=== PATIENT | female | born 2000 | race Caucasian/White ===

== ENCOUNTER 2019-05-08 21:31 | Emergency (ER) | payer OTHER ==
[2019-05-08 21:59] VITALS: BP 101/68
[2019-05-08] MEDS ORDERED: LIDOCAINE 1% INJ-PF (10 MG/ML) 30 ML SDV INJ ONE (22:56)
--- NOTE | 2019-05-08 22:57 | ER Document Report ---
HPI - HPI Time Seen by Provider: 05/08/19 22:44 Pain Level: 4 Context: Patient is a 18-year-old female who presents emergency department with a chief complaint of possible insect bite. Patient reports she noticed an area of redness to the base of the right thumb. Patient reports she was seen at the urgent care 2 days ago and placed on Keflex. Patient reports she has been taking this for 2 days but has not had any improvement and reports increased swelling and redness. Patient denies drainage. Patient reports there is a central area that looks like a head where she got bit by something potentially. - REPRODUCTIVE Reproductive: DENIES: : Past Medical History - General Information source: Patient - Social History Smoking Status: Never Smoker Frequency of alcohol use: None Drug Abuse: None Lives with: Family Family History: None Patient has suicidal ideation: No Patient has homicidal ideation: No - Past Medical History Cardiac Medical History: Reports: None Pulmonary Medical History: Reports: None EENT Medical History: Reports: None Neurological Medical History: Reports: None Endocrine Medical History: Reports: None Renal/ Medical History: Reports: None Malignancy Medical History: Reports: None GI Medical History: Reports: None Musculoskeletal Medical History: Reports None Skin Medical History: Reports None Psychiatric Medical History: Reports: None Traumatic Medical History: Reports: None Infectious Medical History: Reports: None Surgical Hx: Negative Vertical Provider Document - CONSTITUTIONAL Agree With Documented VS: Yes Exam Limitations: No Limitations General Appearance: No Apparent Distress - INFECTION CONTROL TRAVEL OUTSIDE OF THE [place] IN LAST 30 DAYS: No - HEENT HEENT: Atraumatic, Normal ENT Exam, Normocephalic, PERRLA - NECK Neck: Normal Inspection - RESPIRATORY Respiratory: Breath Sounds Normal, No Respiratory Distress - CARDIOVASCULAR Cardiovascular: Regular Rate, Regular Rhythm - GI/ABDOMEN Gastrointestinal: Abdomen Soft, Abdomen Non-Tender, Normal Bowel Sounds - NEURO Level of Consciousness: Awake, Alert, Appropriate - DERM Integumentary: Warm Notes: Patient has a circular area of erythema at the base of the right thumb. There is a centralized head but does not appear to be draining. There is significantly tender to touch and mildly fluctuant. Course - Re-evaluation Re-evalutation: 05/08/19 23:06 Patient appears to be developing a small abscess to the base of the right thumb. I will perform an incision and drainage to help the wound drain over the next few days. Patient will continue to use warm compresses, ibuprofen as needed for pain, keeping the right hand elevated and continue to take the Keflex as prescribed. - Vital Signs Vital signs: Temp Pulse Resp BP Pulse Ox 98.1 F 90 101/68 99 05/08/19 21:35 05/08/19 21:35 05/08/19 21:35 05/08/19 21:35 Procedures - Incision and Drainage Right Lower Thumb Time completed: 11:20 Type: Simple Anesthetic type: 1% Lidocaine mL's of anesthetic: 1 Blade size: 11 I&D procedure: Betadine prep applied Incision Method: Incision made by scalpel Notes: 05/08/19 23:33 Small amount of purulent drainage and blood drained from the very small abscess to the base of the right thumb. Hands back picture: 1 - Area of incision and drainage. Discharge - Discharge Clinical Impression: Abscess, Pain of right thumb Condition: Stable Disposition: HOME, SELF-CARE Additional Instructions: *Today you were seen in the emergency department for possible insect bite to the base of the right thumb. It does appear that you have potentially have gotten bit or stung by an insect or spider. Since he did not see anything bite you there is no way we can know for sure. We do treat this all the same. It does appear that the bite did develop a small abscess. I did attempt to cut this open so we will continue to drain over the next few days. Please continue to use warm compresses, ibuprofen as needed for pain and monitor for signs of infection. Please return the emergency department if you develop any high fever or chills, note of some redness that starts to spread up the hand and arm, in creased swelling or increased tenderness. ABSCESS: You have an abscess (boil). This a pus-forming infection, usually due to staph. Some boils may be left to drain on their own, but most require lancing. From the time the tender lump first appears, it may be three or four days before the abscess is ready to ramana. Local heat and rest help at this stage of treatment. An antibiotic may prevent spread of the infection. Once the abscess is opened, packing may be placed into it. This is done so pus is not sealed inside by premature closure of the cavity. The packing will be removed at your follow-up visit or you may be advised to remove it yourself at home. Sometimes this packing must be replaced a few times during healing. The wound will heal with surprisingly little scar. Depending on the size and location of an abscess, healing can take one to four weeks. You may shower and wash the area around the incision site two or three times a day. Antibiotics may be prescribed, but are usually not necessary after an abscess has been drained. If you develop fever, chills, worsening pain, or increasing swelling in the area, call the doctor or return immediately. POST INCISION AND DRAINAGE: You have had an incision made to allow drainage of an abscess. The incision must remain open so that pus and debris can drain from the wound. If the abscess cavity is large, packing is placed. This keeps the tissues from collapsing and trapping pus inside, while the body shrinks the cavity. The packing may need to be replaced every day or two. The physician will instruct you on the packing. Keep a bulky dressing over the area. Replace it if it becomes saturated with blood or pus. Do not disturb the packing (if present). You may shower and cleanse the area with gentle soap and warm water two or three times a day. Local warmth may be soothing, and may promote faster healing. Return if you develop high fever or chills, or if you note spreading redness, increasing swelling, or increasing tenderness. KEFLEX The antibiotic you've been prescribed is a member of the cephalosporin class. This type of antibiotic covers a wide variety of infections, including those of the skin, lungs, and urinary tract. It's useful for staph infections. This antibiotic is slightly similar to the penicillin family. In rare ca ses, a person who is allergic to penicillin will also be allergic to this medication. If you have had a severe allergic reaction to penicillin, and have not taken this antibiotic since that time, notify your doctor. Antibiotics which cover many germs ("broad spectrum" antibiotics) are more likely to cause diarrhea or "yeast" infections. Women prone to vaginal yeast problems may suffer an attack after taking this antibiotic. In infants, oral thrush (white spots "stuck" on the cheek) or yeast diaper rash may result. See your doctor if these problems occur. Call at once if you develop itching, hives, shortness of breath, or lightheadedness. FOLLOW-UP CARE: Most simple abscesses will not require a follow up visit. If you had packing placed in the abscess, remove it as instructed by the physician. If you have been referred to a physician for follow-up care, call the physicians office for an appointment as you were instructed or within the next two days. If you experience worsening or a significant change in your symptoms, return to the Emergency Department at any time for re-evaluation. Forms: Return to Work Referrals: LOCALMD,NO [Primary Care Provider] - Follow up as needed
== END 2019-05-08 23:52 | disposition home or self-care (01) ==
LOC: ER 21:31
PROC: 0H9FXZZ Drainage of Right Hand Skin, External Approach (ICD-10-PCS; principal; 2019-05-08)
DX: L02.511 Cutaneous abscess of right hand (principal); M79.644 Pain in right finger(s)
CPT/HCPCS: 99283; 26010; J3490